=== PATIENT | male | born 1995 ===

== ENCOUNTER 2018-07-19 15:21 | Emergency (ER) | payer OTHER ==
[2018-07-19 15:28] VITALS: TEMP 98.1
[2018-07-19 15:30] VITALS: O2SAT 100
[2018-07-19] MEDS ORDERED: Sodium Chloride 0.9% 1,000 ML IV STA (15:34)
[2018-07-19 15:55] LABS: BASO % 0.3 % (0.0-2.0); EOS % 0.4 % (0.0-4.0); LYMPH # 0.9 K/uL (1.0-4.3); LYMPH % 11.8 % (20.0-40.0); MEAN CELL VOLUME 86.7 fl (80.0-94.0); MEAN CORPUSCULAR HEMOGLOBIN 29.4 pg (27.0-31.0); MEAN CORPUSCULAR HGB CONC 33.9 g/dL (33.0-37.0); MEAN PLATELET VOLUME 10.7 fl (7.2-11.7); MONO # 0.6 K/uL (0.0-0.8); MONO % 7.8 % (0.0-10.0); NEUT # 5.8 K/uL (1.8-7.0); NEUT % 79.7 % (50.0-75.0); NRBC % 0.1 % (0.0-0.0); RBC 4.77 Mil/uL (4.40-5.90); RED CELL DISTRIBUTION WIDTH 13.2 % (11.5-14.5); URINE BACTERIA RARE (<OCC); URINE BILIRUBIN NEGATIVE (NEGATIVE); URINE BLOOD NEGATIVE (NEGATIVE); URINE CLARITY CLEAR (Clear); URINE COLOR STRAW (YELLOW); URINE GLUCOSE (UA) NEG (Normal); URINE LEUKOCYTE ESTERASE NEG Leu/uL (Negative); URINE PROTEIN NEGATIVE (NEGATIVE); URINE UROBILINOGEN 0.2-1.0 mg/dL (0.2-1.0); WHITE BLOOD COUNT 7.3 K/uL (4.8-10.8)
[2018-07-19 16:05] LABS: CALCIUM 9.7 mg/dL (8.4-10.2); GFR NON-AFRICAN AMERICAN > 60
[2018-07-19 16:07] LABS: ALB/GLOB RATIO 1.5 (1.0-2.1); ALBUMIN 4.9 g/dL (3.5-5.0); ALT/SGPT 26 U/L (21-72); AST/SGOT 37 U/L (17-59); BLOOD UREA NITROGEN 9 mg/dl (9-20)
--- NOTE | 2018-07-19 16:14 | RAD ---
Date of service: 07/19/2018 HISTORY: SOB COMPARISON: Comparison chest 09/05/2017 FINDINGS: LUNGS: No active pulmonary disease. PLEURA: No significant pleural effusion identified, no pneumothorax apparent. CARDIOVASCULAR: Normal. OSSEOUS STRUCTURES: No significant abnormalities. VISUALIZED UPPER ABDOMEN: Normal. OTHER FINDINGS: None. IMPRESSION: No active disease.
[2018-07-19 18:39] LABS: BARBITURATES, UR NEGATIVE (NEGATIVE); BENZODIAZEPINES, UR NEGATIVE (NEGATIVE); OPIATES, UR NEGATIVE (NEGATIVE); PHENCYCLIDINE, UR NEGATIVE (NEGATIVE)
--- NOTE | 2018-07-19 18:47 | ED PDOC ---
HPI: General Adult Time Seen by Provider: 07/19/18 15:33 Chief Complaint (Nursing): Chest Pain Chief Complaint (Provider): palpitations, dizziness History Per: Patient History/Exam Limitations: no limitations Onset/Duration Of Symptoms: Hrs (approx 12), Gradual Current Symptoms Are (Timing): Still Present Severity: Moderate Additional Complaint(s): 22yo male c/o palpitations and dizziness since last night after smoking marijuana and drinking several beers. States first time smoking marijuana. This morning didnt feel better, felt presyncopal, denies syncope, headache, change vision or speech. Denies chest pain, SOB or edema. Past Medical History Reviewed: Historical Data, Nursing Documentation, Vital Signs Vital Signs: Last Vital Signs Temp 98.1 F 07/19/18 15:27 Pulse 58 L 07/19/18 19:45 Resp 18 07/19/18 19:45 BP 144/67 07/19/18 19:45 Pulse Ox 100 07/19/18 19:45 - Medical History PMH: No Chronic Diseases - Surgical History Surgical History: No Surg Hx - Family History Family History: States: Unknown Family Hx - Social History Current smoker - smoking cessation education provided: No Alcohol: Social Drugs: Cannabis (x1) - Home Medications Home Medications: Ambulatory Orders Medication Instructions Recorded No Known Home Med 07/19/18 - Allergies Allergies/Adverse Reactions: Allergies Allergy/AdvReac Type Severity Reaction Status Date / Time No Known Allergies Allergy Verified 07/19/18 15:33 Review of Systems ROS Statement: Except As Marked, All Systems Reviewed And Found Negative Constitutional: Negative for: Fever ENT: Negative for: Nose Discharge, Throat Pain Cardiovascular: Positive for: Palpitations, Light Headedness. Negative for: Chest Pain, Orthopnea Respiratory: Negative for: Cough, Shortness of Breath Gastrointestinal: Negative for: Nausea, Vomiting, Abdominal Pain Genitourinary Male: Negative for: Dysuria Musculoskeletal: Negative for: Neck Pain Skin: Negative for: Rash, Lesions Neurological: Positive for: Dizziness. Negative for: Weakness, Numbness, Headache Psych: Negative for: Depression Physical Exam - Reviewed Nursing Documentation Reviewed: Yes Vital Signs Reviewed: Yes - Physical Exam Appears: Positive for: Well, Non-toxic, No Acute Distress Head Exam: Positive for: ATRAUMATIC, NORMAL INSPECTION, NORMOCEPHALIC Skin: Positive for: Normal Color, Warm, DRY Eye Exam: Positive for: EOMI, Normal appearance, PERRL ENT: Positive for: Normal ENT Inspection Neck: Positive for: Normal, Painless ROM Cardiovascular/Chest: Positive for: Regular Rate, Rhythm Respiratory: Positive for: CNT, Normal Breath Sounds Pulses-Radial (L): 3+/4+ Pulses-Radial (R): 3+/4+ Gastrointestinal/Abdominal: Positive for: Soft. Negative for: Tenderness Back: Positive for: Normal Inspection Extremity: Positive for: Normal ROM Neurologic/Psych: Positive for: Alert, Oriented, Cerebellar Tests (intact coordination grossly). Negative for: Motor/Sensory Deficits, Aphasia (speech clear), Facial Droop - Laboratory Results Result Diagrams: 07/19/18 15:49 07/19/18 15:49 - ECG ECG: Positive for: Interpreted By Me ECG Rhythm: Positive for: Normal ST Segment, Sinus Rhythm, Nonspecific Changes Rate: 60 O2 Sat by Pulse Oximetry: 100 Pulse Ox Interpretation: Normal - Radiology X-Ray: Interpreted by Me X-Ray Interpretation: No Acute Disease Medical Decision Making Medical Decision Making: workup initiated for possible chemically induced palpitations/ dizziness given THC use and alcohol use IVF bolus, ativan 0.5mg IV for anxiolysis repeat EKG 18:14 essentially unchanged sinus at 61bpm without interval changes as interpreted by me UDS negative patient improved over course ED stay, remains neurologically intact with stable vitals without evidence ectopy or EKG changes. 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 Drink plenty of fluids. Return to ER for any worse or new symptoms. Instructions: Palpitations (DC), Drug Abuse and Drug Addiction (DC) Forms: [employer] (Kiswahili)
[2018-07-19 19:32] VITALS: BP 144/67
[2018-07-19 19:47] VITALS: RESP 18
[2018-07-19 22:02] VITALS: PULSE 60
--- NOTE | 2018-07-20 09:45 | CARD ---
APPROVED REPORT Date of service: 07/19/2018 <Conclusion> Normal sinus rhythm Possible Left atrial enlargement Borderline ECG
--- NOTE | 2018-07-20 09:55 | CARD ---
APPROVED REPORT Date of service: 07/19/2018 <Conclusion> Normal sinus rhythm Possible Left atrial enlargement Rightward axis Borderline ECG
== END 2018-07-19 19:47 | disposition home or self-care (01) ==
LOC: H.ER 15:21
DX: R00.2 Palpitations (principal); F12.90 Cannabis use, unspecified, uncomplicated; R42 Dizziness and giddiness
CPT/HCPCS: 71045; 80053; 80320; 80324; 80345; 80346; 80349; 80353; 80358; 80361; 81003; 82550; 83735; 83992; 84100; 84484; 85025; 93005; 96361; 96374; 99285; J2060; J7030

== ENCOUNTER 2018-07-19 23:40 | Emergency (ER) | payer OTHER, SELFPAY ==
[2018-07-19 23:52] VITALS: TEMP 98.6; O2SAT 98
--- NOTE | 2018-07-20 00:59 | ED PDOC ---
HPI: Chest Pain Time Seen by Provider: 07/20/18 00:05 Chief Complaint (Nursing): Palpitations Chief Complaint (Provider): Palpitations History Per: Patient History/Exam Limitations: no limitations Onset/Duration Of Symptoms: Days (x2) Current Symptoms Are (Timing): Still Present Additional Complaint(s): 22 year old male, with no significant past medical history, presenting for evaluation of palpitations x2 days. Patient states his symptoms began last night and are associated with a feeling of his heart racing, mild light headedness, and anxiety. Patient admits that he drank last night and smoked marijuana for the first time. Patient was seen here earlier today for the same issue, had tests which were unremarkable, and discharged home. Patient is returning due to concerns because he continues to feel his symptoms and is unable to sleep. He denies any hallucinations, depression, chest pain, and difficulty breathing. Patient reports a possible medical history of left sided heart enlargement. PMD: None Past Medical History Reviewed: Historical Data, Nursing Documentation, Vital Signs Vital Signs: Last Vital Signs Temp 98.6 F 07/19/18 23:51 Pulse 62 07/19/18 23:51 Resp BP 160/80 H 07/19/18 23:51 Pulse Ox 98 07/20/18 01:16 - Medical History PMH: No Chronic Diseases Other PMH: Possible left sided cardiomegaly - Surgical History Surgical History: No Surg Hx - Family History Family History: States: Unknown Family Hx - Social History Current smoker - smoking cessation education provided: No Alcohol: Social Drugs: Cannabis (one time) - Home Medications Home Medications: Ambulatory Orders Medication Instructions Recorded No Known Home Med 07/19/18 - Allergies Allergies/Adverse Reactions: Allergies Allergy/AdvReac Type Severity Reaction Status Date / Time No Known Allergies Allergy Verified 07/19/18 15:33 Review of Systems ROS Statement: Except As Marked, All Systems Reviewed And Found Negative Cardiovascular: Positive for: Palpitations, Light Headedness. Negative for: Chest Pain Psych: Positive for: Anxiety. Negative for: Depression, Psychosis, Suicidal ideation Physical Exam - Reviewed Nursing Documentation Reviewed: Yes Vital Signs Reviewed: Yes - Physical Exam Appears: Positive for: Non-toxic, No Acute Distress Head Exam: Positive for: ATRAUMATIC, NORMOCEPHALIC Skin: Positive for: Warm, Dry Eye Exam: Positive for: EOMI, PERRL. Negative for: Nystagmus ENT: Positive for: Pharynx Is (clear) Neck: Positive for: Painless ROM, Supple Cardiovascular/Chest: Positive for: Regular Rate, Rhythm. Negative for: Murmur Respiratory: Positive for: Normal Breath Sounds (clear to auscultation). Negative for: Rhonchi, Wheezing Gastrointestinal/Abdominal: Positive for: Soft. Negative for: Tenderness Back: Positive for: Normal Inspection. Negative for: Decreased ROM Extremity: Positive for: Normal ROM. Negative for: Deformity Lymphatic: Negative for: Adenopathy Neurologic/Psych: Positive for: Alert, Oriented (x3), Mood/Affect (anxious mood , anxious affect) - ECG O2 Sat by Pulse Oximetry: 98 (RA) Pulse Ox Interpretation: Normal Medical Decision Making Medical Decision Making: Impression: Palpitations, likely related to recent drug use. Plan: -protection consultant -Reevaluation Stable in ER during stay with no abnormalities in rate or rhythm. Reassurance given. Advised rest and followup. Scribe Attestation: Documented by Enrico Sanchez, acting as a scribe for Holly William MD. Provider Scribe Attestation: All medical record entries made by the Scribe were at my direction and personally dictated by me. I have reviewed the chart and agree that the record accurately reflects my personal performance of the history, physical exam, medical decision making, and the department course for this patient. I have also personally directed, reviewed, and agree with the discharge instructions and disposition. Disposition - Clinical Impression Clinical Impression: Palpitations Counseled Patient/Family Regarding: Studies Performed, Diagnosis, Need For Followup - Disposition Referrals: [facility] [Outside] Disposition: Routine/Home Disposition Time: 01:18 Condition: STABLE Instructions: Palpitations (DC) Forms: [facility] ED School/Work Excuse Print Language: SENEGALESE
[2018-07-20 02:03] VITALS: BP 143/77; PULSE 54; RESP 19
== END 2018-07-20 02:06 | disposition home or self-care (01) ==
LOC: H.ER 23:40
DX: R00.2 Palpitations (principal); F12.90 Cannabis use, unspecified, uncomplicated

== ENCOUNTER 2018-07-21 04:30 | Emergency (ER) | payer SELFPAY ==
[2018-07-21 04:49] VITALS: O2SAT 100
--- NOTE | 2018-07-21 05:05 | ED PDOC ---
HPI: Chest Pain Time Seen by Provider: 07/21/18 04:48 Chief Complaint (Nursing): Palpitations Chief Complaint (Provider): Palpitations History Per: Patient History/Exam Limitations: no limitations Onset/Duration Of Symptoms: Days (x3) Current Symptoms Are (Timing): Still Present Additional Complaint(s): 22 y/o male with no significant PMHx presents to the ED for evaluation of palpitations, onset three days ago. Patient states his symptoms began two nights ago and are associated with a feeling of his heart racing, mild light headedness, and anxiety. Patient admits that he drank last night and smoked marijuana. Patient was seen here twice yesterday for the same issues and discharged home. Patient is returning due to concerns because he continues to feel his symptoms and is unable to sleep. He denies any hallucinations, depression, chest pain, and difficulty breathing. Patient reports a possible medical history of left sided heart enlargement. PMD: No Provider Past Medical History Reviewed: Historical Data, Nursing Documentation, Vital Signs Vital Signs: Last Vital Signs Temp 98.2 F 07/21/18 07:00 Pulse 68 07/21/18 07:00 Resp 18 07/21/18 07:00 BP 130/72 07/21/18 07:00 Pulse Ox 100 07/21/18 07:00 - Medical History PMH: No Chronic Diseases - Surgical History Surgical History: No Surg Hx - Family History Family History: States: Unknown Family Hx - Home Medications Home Medications: Ambulatory Orders Medication Instructions Recorded No Known Home Med 07/19/18 - Allergies Allergies/Adverse Reactions: Allergies Allergy/AdvReac Type Severity Reaction Status Date / Time No Known Allergies Allergy Verified 07/19/18 15:33 Review of Systems Cardiovascular: Positive for: Palpitations Neurological: Positive for: Other (Lightheadedness) Psych: Positive for: Anxiety. Negative for: Depression Physical Exam - Reviewed Nursing Documentation Reviewed: Yes Vital Signs Reviewed: Yes - Physical Exam Appears: Positive for: No Acute Distress Head Exam: Positive for: ATRAUMATIC, NORMOCEPHALIC Skin: Positive for: Warm, Dry Eye Exam: Positive for: EOMI, PERRL ENT: Positive for: Pharynx Is (clear) Neck: Positive for: Painless ROM, Supple Cardiovascular/Chest: Positive for: Regular Rate, Rhythm. Negative for: Murmur Respiratory: Positive for: Normal Breath Sounds (clear to auscultation). Negative for: Rhonchi, Wheezing Gastrointestinal/Abdominal: Positive for: Soft. Negative for: Tenderness Back: Positive for: Normal Inspection. Negative for: Decreased ROM Extremity: Positive for: Normal ROM. Negative for: Deformity Lymphatic: Positive for: Adenopathy Neurologic/Psych: Positive for: Alert, Oriented (x3), Mood/Affect (Anxious mood/ anxious affect) - Laboratory Results Result Diagrams: 07/21/18 05:14 07/21/18 05:14 - ECG O2 Sat by Pulse Oximetry: 100 (RA) Pulse Ox Interpretation: Normal Medical Decision Making Medical Decision Making: Time:[id number] Impression: Palpitations Plan: -- EKG -- CMP -- Free T4 -- Magnesium -- Phosphorus -- T3 -- Thyroid Stimulating Hormone -- CBC with differentials -- Children'S Book Author -- IV Insertion Labs again unremarkable. Stable for dc. Advised outpatient followup. Scribe Attestation: Documented by Spike Padilla acting as a scribe for Holly William MD. Provider Scribe Attestation: All medical record entries made by the Scribe were at my direction and personally dictated by me. I have reviewed the chart and agree that the record accurately reflects my personal performance of the history, physical exam, medical decision making, and the department course for this patient. I have also personally directed, reviewed, and agree with the discharge instructions and disposition. Disposition - Clinical Impression Clinical Impression: Palpitations - Disposition Referrals: [facility] [Outside] Disposition: Routine/Home Disposition Time: 06:30 Condition: STABLE Instructions: Palpitations (DC) Forms: [employer] (Sammarinese)
[2018-07-21 05:18] LABS: BASO % 0.3 % (0.0-2.0); EOS # 0.1 K/uL (0.0-0.7); EOS % 1.7 % (0.0-4.0); HEMOGLOBIN 14.7 g/dL (12.0-18.0); LYMPH % 25.4 % (20.0-40.0); MEAN CELL VOLUME 88.4 fl (80.0-94.0); MEAN CORPUSCULAR HGB CONC 32.8 g/dL (33.0-37.0); MEAN PLATELET VOLUME 10.3 fl (7.2-11.7); MONO # 0.7 K/uL (0.0-0.8); MONO % 9.1 % (0.0-10.0); NEUT # 4.9 K/uL (1.8-7.0); NEUT % 63.5 % (50.0-75.0); RBC 5.07 Mil/uL (4.40-5.90); RED CELL DISTRIBUTION WIDTH 13.3 % (11.5-14.5); WHITE BLOOD COUNT 7.7 K/uL (4.8-10.8)
[2018-07-21 05:57] LABS: T3 1.18 nmol/L (1.49-2.60)
[2018-07-21 06:13] LABS: ALB/GLOB RATIO 1.5 (1.0-2.1); ALBUMIN 4.7 g/dL (3.5-5.0); ALT/SGPT 30 U/L (21-72); AST/SGOT 20 U/L (17-59); BLOOD UREA NITROGEN 18 mg/dl (9-20); CALCIUM 9.4 mg/dL (8.4-10.2); GFR NON-AFRICAN AMERICAN > 60
[2018-07-21 07:01] VITALS: BP 130/72; PULSE 68; RESP 18; TEMP 98.2
--- NOTE | 2018-07-21 09:25 | CARD ---
APPROVED REPORT Date of service: 07/21/2018 <Conclusion> Sinus bradycardia ST elevation, probably due to early repolarization Borderline ECG
== END 2018-07-21 07:01 | disposition home or self-care (01) ==
LOC: H.ER 04:30
DX: R00.2 Palpitations (principal); F12.90 Cannabis use, unspecified, uncomplicated; F41.9 Anxiety disorder, unspecified